=== PATIENT | male | born 1965 | race Caucasian/White ===

== ENCOUNTER → 2018-08-20 | Outpatient (CLI) | payer OTHER ==
[~2018-08-20] MED LIST: ASPI-630 PO; CANA300T PO; CRESTOR40 MG PO; GABA-585 PO; LISI-334 PO; METF10007 PO
--- NOTE | 2018-08-20 13:15 | PCVCIMAG ---
APPROVED REPORT Indications Bruit Doppler Spectral Velocity Analysis PSV / EDVPSV / EDV ECA (R) 109 / 16 cm/sECA (L) 96 / 22 cm/s dICA (R) 65 / 30 cm/sdICA (L) 72 / 32 cm/s Sandrine (R) 74 / 27 cm/smICA (L) 76 / 36 cm/s pICA (R) 78 / 22 cm/spICA (L) 92 / 29 cm/s Bulb (R) 71 / 24 cm/sBulb (L) 81 / 30 cm/s dCCA (R) 103 / 29 cm/sdCCA (L) 109 / 36 cm/s mCCA (R) 95 / 26 cm/smCCA (L) 104 / 36 cm/s Vert (R) 43 / 16 cm/sVert (L) 39 / 16 cm/s ICA/CCA 0.76ICA/CCA 0.84 Basic Measurements Blood Pressure: Pulses: Right Left RightLeft Brachial(Sitting) 112/72ahJq320/78mmHgTemporal Real Time B-Mode Imaging Vert. (R)AntegradeVert. (L)Antegrade Findings The right carotid bulb has no significant plaque. The right proximal internal carotid artery shows no significant stenosis. The right common carotid artery shows no significant stenosis. The right external carotid artery shows no significant stenosis. The left carotid bulb has minimal plaque. The left proximal internal carotid artery shows no significant stenosis. The left common carotid artery shows no significant stenosis. The left external carotid artery shows no significant stenosis. Conclusion 1. Minimal plaquing without significant stenosis. 2. Antegrade vertebral flow.
--- NOTE | 2018-08-20 15:27 | PCVCIMAG ---
APPROVED REPORT Study performed: 08/20/2018 13:19:25 EXAM: Comprehensive 2D, Doppler, and color-flow Echocardiogram Patient Location: Echo lab Room #: 2Status: routine BSA: 1.92 HR: 63 bpmBP: 116/78 mmHg Rhythm: NSR Risk Factors: Cardiac Risk Factors: HTN, DM, Hyperlipidemia Indications CVA/TIA Diabetes Chest Pain Hypertension/HDD 2D Dimensions IVSd: 9.89 (7-11mm)LVOT Diam: 21.93 (18-24mm) LVDd: 44.45 mm PWd: 7.73 (7-11mm)Ascending Ao: 30.26 (22-36mm) LVDs: 27.40 (25-40mm) Left Atrium: 32.22 (27-40mm) Aortic Root: 20.78 mm LV Single Plane 4CH: 60.12 % LV Single Plane 2CH: 58.38 % Biplane EF: 65.0 % Volumes Left Atrial Volume (Systole) Single Plane 4CH: 39.42 mLSingle Plane 2CH: 44.83 mL Biplane LA Volume: 46.00 mLLA ESV Index: 24.00 mL/m2 Aortic Valve AoV Peak Bruce.: 1.76 m/s AO Peak Gr.: 13.05 mmHgLVOT Max P.92 mmHg LVOT Max V: 1.08 m/s LUISITO Vmax: 2.31 cm2 Mitral Valve E/A Ratio: 1.2 MV Decel. Time: 155.38 ms MV E Max Bruce.: 0.79 m/s MV A Bruce.: 0.64 m/s IVRT: 83.04 ms TDI E/Lateral E': 6.58E/Medial E': 8.78 Medial E' Bruce.: 0.09 m/s Lateral E' Bruce.: 0.12 m/s Pulmonary Valve PV Peak Bruce.: 1.56 m/sPV Peak Gr.: 9.77 mmHg Pulmonary Vein P Vein S: 0.55 m/sP Vein A: 0.33 m/s P Vein D: 0.45 m/sP Vein A Dur.: 92.3 msec P Vein S/D Ratio: 1.22 Tricuspid Valve TR Peak Bruce.: 1.60 m/s TR Peak Gr.: 10.28 mmHg TV Vmax: 0.65 m/sPA Pressure: 17.00 mmHg Left Ventricle The left ventricle is normal size. There is normal LV segmental wall motion. There is normal left ventricular wall thickness. Left ventricular systolic function is normal. The left ventricular ejection fraction is within the normal range. LVEF is 65%. The left ventricular diastolic function is normal. Right Ventricle The right ventricle is normal size. The right ventricular systolic function is normal. Atria The left atrium size is normal. The right atrium size is normal. Aortic Valve Aortic valve is trileaflet. The aortic valve is normal in structure and function. No aortic regurgitation is present. There is no aortic valvular stenosis. Mitral Valve The mitral valve is normal in structure. There is no mitral valve regurgitation noted. No evidence of mitral valve stenosis. Tricuspid Valve The tricuspid valve is normal in structure. Trace to mild tricuspid regurgitation with a PA pressure of 17 mmHg. Pulmonic Valve The pulmonary valve is normal in structure. There is no pulmonic valvular regurgitation. Great Vessels The aortic root is normal in size. The ascending aorta is normal in size. IVC is normal in size and collapses >50% with inspiration. Pericardium There is no pericardial effusion. There is no pleural effusion. <Conclusion> Left ventricular systolic function is normal. There is normal LV segmental wall motion. LVEF is 65%. Normal diastolic function The aortic valve is normal in structure and function. No aortic regurgitation or stenosis The mitral valve is normal in structure. No mitral valve regurgitation. Trace to mild tricuspid regurgitation with a pulmonary artery pressure of 17 mmHg. There is no pericardial effusion.
== END | disposition home or self-care (01) ==
LOC: PCVCIMAG 12:45
PROVIDERS: ATTEND Internal Medicine
DX: I65.23 Occlusion and stenosis of bilateral carotid arteries (principal); R09.89 Other specified symptoms and signs involving the circulatory and respiratory systems; E13.8 Other specified diabetes mellitus with unspecified complications; E78.5 Hyperlipidemia, unspecified
CPT/HCPCS: 93306; 93880